=== PATIENT | male | born 1975 | race Caucasian/White ===

== ENCOUNTER 2022-04-12 12:08 | Emergency (ER) | payer BC ==
[~2022-04-12] VITALS: Ht 177.8 cm; Wt 88.9 kg
--- NOTE | 2022-04-12 12:32 | NUR ---
DR LOUISE AT BEDSIDE FOR EVAL.
--- NOTE | 2022-04-12 12:53 | NUR ---
UNDERWRITING SUPPORT MANAGER AT BEDSIDE FOR BLOOD DRAW.
[2022-04-12] MEDS ORDERED: ONDANSETRON HCL/PF 4 MG/2 ML VIAL IVP ONE (13:00)
[2022-04-12] MEDS ORDERED: IV NS 0.9% 1,000 ML BAG IV ONE (13:00)
[2022-04-12 13:15] LABS: BASOPHILS % (AUTO) 0.4 % (0.0-2.0); EOSINOPHILS % (AUTO) 0.3 % (0.0-6.0); HEMATOCRIT 42 % (39-51); HEMOGLOBIN 14.2 g/dL (13.5-17.5); LYMPHOCYTES # (AUTO) 1.4 K/uL (0.8-4.8); LYMPHOCYTES % (AUTO) 20.8 % (20.0-44.0); MEAN CORPUSCULAR HGB CONC 34 g/dl (31.0-36.0); MEAN CORPUSCULAR VOLUME 84 fL (80-96); MONOCYTES # (AUTO) 0.4 K/uL (0.1-1.30); MONOCYTES % (AUTO) 6.3 % (2.0-12.0); NEUTROPHILS % (AUTO) 72.2 % (43.0-81.0); PLATELET COUNT (AUTO) 253 K/uL (150-450); RED BLOOD CELL COUNT(AUTO) 5.01 MIL/uL (4.5-6.0); WHITE BLOOD COUNT (AUTO) 6.9 K/uL (4.3-11.0)
[2022-04-12 13:42] LABS: ALBUMIN 4.3 g/dL (3.4-5.0); BILIRUBIN,DIRECT 0.2 mg/dL (0.0-0.2); BILIRUBIN,TOTAL 0.6 mg/dL (0.2-1.0); CALCIUM, SERUM 9.2 mg/dL (8.5-10.1); CREATININE 0.9 mg/dL (0.6-1.3); POTASSIUM 3.9 mmol/L (3.5-5.1); TOTAL PROTEIN, SERUM 7.4 g/dL (6.4-8.2)
[2022-04-12] MEDS ORDERED: ONDANSETRON HCL/PF 4 MG/2 ML VIAL ONE (14:07)
[2022-04-12] MEDS ORDERED: MAG HYDROX/AL HYDROX/SIMETH 30 ML UDC ONE (14:21)
[2022-04-12] MEDS ORDERED: FAMOTIDINE/PF INJ 20 MG/2 ML VIAL IV ONE ×2 (14:21→14:30)
[2022-04-12] MEDS ORDERED: LIDOCAINE VISCOUS 2% UD 15 ML UDC ONE (14:21)
--- NOTE | 2022-04-12 14:28 | NUR ---
RADIOLOGY AT BEDSIDE FOR CHEST XRAY.
[2022-04-12] MEDS ORDERED: LIDOCAINE VISCOUS 2% UD 15 ML UDC MM ONE (14:30)
[2022-04-12] MEDS ORDERED: MAG HYDROX/AL HYDROX/SIMETH 30 ML UDC PO ONE (14:30)
[2022-04-12] MEDS ORDERED: FAMO-131 PO (14:49)
[2022-04-12] MEDS ORDERED: OMEP20TA20 PO (14:49)
[2022-04-12] MEDS ORDERED: ONDA4TAB5 PO (14:49)
--- NOTE | 2022-04-12 15:32 | NUR ---
Patient discharged to home in stable condition. Written and verbal after care instructions given. Patient verbalizes understanding of instruction.IV removed. Catheter intact and site benign. Pressure and 4x4 applied to site. No bleeding noted.
[2022-04-12 15:33] VITALS: BP 137/76
== END 2022-04-12 15:34 | disposition home or self-care (01) ==
LOC: ER 12:21
DX: R10.13 Epigastric pain (principal); R11.2 Nausea with vomiting, unspecified
CPT/HCPCS: 99284; 96374; 71045; 96361; 96375; 85025; 80048; 83690; 80076; J3490; J2405; J7030; 36415